=== PATIENT | female | born 1980 | race African-American/Black ===

== ENCOUNTER 2016-11-13 21:02 | Emergency (ER) | payer MEDICAID ==
[~2016-11-13] VITALS: Ht 157.5 cm; Wt 59.0 kg
[2016-11-13 21:05] VITALS: BP 112/70
== END 2016-11-14 01:50 | disposition left against medical advice (07) ==
LOC: ER 21:02
DX: M79.672 Pain in left foot (principal); Z53.21 Procedure and treatment not carried out due to patient leaving prior to being seen by health care provider